=== PATIENT | male | born 1985 | race Caucasian/White ===

== ENCOUNTER 2022-12-11 16:30 | Emergency (ER) | payer SELFPAY ==
[2022-12-11] VITALS (7 sets, daily range): BP systolic 101–124; BP diastolic 79–83; PULSE 73–78; RESP 16; TEMP 36.7; O2SAT 97–100; BMI 29.1
[2022-12-11 17:24] LABS: Basophils % 0.4 %; Eosinophils # 0.1 10^3/uL (0.0-0.8); Eosinophils % 1.5 %; Hematocrit 45.1 % (42.0-52.0); Hemoglobin 14.9 g/dL (11.7-16.6); Lymphocytes # 1.4 10^3/uL (0.8-4.8); Lymphocytes % 26.2 %; Mean Corpuscular Hemoglobin 32.6 pg (28.0-34.0); Mean Corpuscular Volume 98.7 fl (80-94); Mean Platelet Volume 9.2 fL (7.4-10.4); Monocytes # 0.5 10^3/uL (0.2-0.9); Monocytes % 9.5 %; Neutrophils # 3.33 10^3/uL (1.8-7.7); Neutrophils % 62.2 %; Nucleated Red Blood Cells % 0 %; Platelet Count 327 10^3/cmm (130-400); Red Blood Count 4.57 10^6/uL (4.1-5.3); Red Cell Distribution Width 12.2 % (12.1-15.1); White Blood Count 5.4 10^3/uL (4.0-10.0)
[2022-12-11 17:43] LABS: Alanine Aminotransferase 17 U/L (0-41); Albumin Level 4.7 g/dL (3.5-5.2); Alkaline Phosphatase 95 U/L (40-130); Anion Gap 14.7 (5-19); Aspartate Amino Transferase 15 U/L (0-40); Blood Urea Nitrogen 7 mg/dL (6-20); Calcium 8.7 mg/dL (8.5-10.5); Carbon Dioxide 26 mmol/L (22-29); Chloride 104 mmol/L (98-107); Globulin 2.7 g/dL (1.3-4.6); Glomerular Filtration Rate 94.4 mL/min (90-130); Glucose 87 mg/dL (65-115); Lipase 11 U/L (13-60); Osmolality Calculated 289 mOsm/kg (285-295); Potassium 3.7 mmol/L (3.5-5.1); Sodium 141 mmol/L (136-145); Total Bilirubin 0.4 mg/dL (0.15-1.2); Total Protein 7.4 g/dL (6.6-8.7)
--- NOTE | 2022-12-11 19:21 | ED_ITS ---
HPI - Abdominal Pain General: Chief Complaint: Abdominal Pain Stated Complaint: abd pain, n/v, blood in stool Time Seen by Provider: 12/11/22 18:52 History of Present Illness: Patient is a 36-year-old male comes to the ED with abdominal pain. Patient states this is a chronic issue that he has been dealing with for over 4 years now. Patient has history of pancreatitis, bowel resect ion, cholecystectomy and appendectomy. He has had a colonoscopy within the last 4 years as well. He saw multiple GI specialist down in [place] and they were unable to give him any answers. He states that his abdominal pain is chronic but over the last couple weeks its been getting worse. Reports feeling bloated and distended in his abdomen. Pain is rated 10 out of 10 at its all throughout his upper abdomen and then radiates down the middle of his abdomen. He endorses having nausea but denies any recent episodes of emesis over the past couple days. Endorses decreased appetite states that eating anything makes symptoms worse. Denies any diarrhea or constipation. He has been having 2 small formed stool bowel movements a day. Denies any fevers dysuria or hematuria. Denies any alcohol or drug use. Denies any history of liver issues. Associated Symptoms: Reports bloating and nausea; Denies chills, constipation, diarrhea, dysuria, fever(s), hematochezia, hematuria and vomiting Review of Systems Const: Denies: fever(s), chills or fatigue Eyes: Denies: change in vision or eye discomfort ENMT: Denies: throat pain, odynophagia, nasal discharge or nasal congestion Card: Denies: chest pain, palpitations, edema, swelling of feet/ankles, dyspnea on exertion or orthopnea Resp: Denies: dyspnea, productive cough or non-productive cough GI: Reports: abdominal pain, nausea and bloating; Denies: vomiting, diarrhea, constipation or hematochezia : Denies: flank pain, difficulty urinating, dysuria or hematuria Musc: Denies: neck pain, back pain or extremity swelling Skin/Breast: Denies: rash or new lesions Neuro: Denies: headache(s), numbness in extremities or weakness in extremities PFSH ED PFSH: Medical History Pancreatitis Surgical History History of bowel resection History of cholecystectomy Hx of appendectomy Physical Exam Const: COMMON NORMALS: patient oriented x3 and alert GENERAL APPEARANCE: cooperative HENMT: COMMON NORMALS: normocephalic HEAD & SCALP: normocephalic MOUTH: Normal oral and palatal mucosa present THROAT: posterior oropharynx normal and uvula midline Neck/C-Spine: COMMON NORMALS: supple GENERAL: Yes normal visual inspection Resp: COMMON NORMALS: normal respiratory effort, No retractions, No use of accessory muscles and clear to auscultation bilaterally AUSCULTATION: clear to auscultation bilaterally Cardio: COMMON NORMALS: regular rate, regular rhythm, S1 normal heart sound present, S2 normal heart sound present, No gallops present (Cardio), No clicks present (Cardio), No murmurs present (Cardio) and Peripheral pulses 2+ throughout RATE: regular rate RHYTHM: regular rhythm HEART SOUNDS: S1 normal heart sound present and S2 normal heart sound present PERIPHERAL PULSES: Peripheral pulses 2+ throughout GI: COMMON NORMALS: Normal to inspection, nondistended, normoactive bowel sounds present, Soft to palpation and no masses INSPECTION: Yes abdominal distension and Yes central obesity PALPATION: Yes Soft to palpation and Yes Tenderness to palpation present (GI) Details: LUQ and RUQ : COMMON NORMALS: Yes no CVA tenderness BLADDER/KIDNEY EXAM: Yes no CVA tenderness Back/Pelvis: COMMON NORMALS: no CVA tenderness Extremity: COMMON NORMALS: normal to inspection Neuro: COMMON NORMALS: patient oriented x3 SENSORIUM/ORIENTATION: Yes alert GAIT: Yes Normal gait present Skin: GENERAL SKIN EXAM: dry skin Course Vital Signs: Vital signs: Vital Signs Temperature 98.0 F 12/11/22 17:17 Pulse Rate 78 12/11/22 21:31 Respiratory Rate 16 12/11/22 21:31 Blood Pressure 101/79 12/11/22 21:31 Pulse Oximetry 98 12/11/22 21:31 MDM - Abdominal Pain Medical Decision Making Patient is a 36-year-old male comes to the ED with abdominal pain. Patient stat es this is a chronic issue that he has been dealing with for over 4 years now. Patient has history of pancreatitis, bowel resection, cholecystectomy and appendectomy. He has had a colonoscopy within the last 4 years as well. He saw multiple GI specialist down in [place] and they were unable to give him any answers. Vitals are stable. Patient appears nontoxic and in no acute distress. Exam of patient shows some abdominal tenderness throughout right and left upper quadrant and he has some distention of his abdomen. Rest of exam is benign. Labs are all unremarkable. CT of abdomen pelvis showed no acute findings. Patient was diagnosed with chronic abdominal pain I placed an order with case management to refer patient to a primary care physician to get established with locally. Patient was stable for discharge home and sent with a prescription for nausea and pain med. Return to ED precautions given. Patient understood agree with plan. Lab Data I reviewed the patient's lab results. 12/11/22 17:12 12/11/22 17:12 Labs/Radiology: Radiology Impressions Abdomen/Pelvis CT 12/11/22 19:25 IMPRESSION: 1. No acute abnormality in the abdomen or pelvis. 2. Incidental/nonacute findings are listed in the report. Laboratory Results WBC 5.4 10^3/uL (4.0-10.0) 12/11/22 17:12 RBC 4.57 10^6/uL (4.1-5.3) 12/11/22 17:12 Hgb 14.9 g/dL (11.7-16.6) 12/11/22 17:12 Hct 45.1 % (42.0-52.0) 12/11/22 17:12 MCV 98.7 fl (80-94) H 12/11/22 17:12 MCH 32.6 pg (28.0-34.0) 12/11/22 17:12 MCHC 33.0 g/dL (30.0-36.0) 12/11/22 17:12 RDW 12.2 % (12.1-15.1) 12/11/22 17:12 Plt Count 327 10^3/cmm (130-400) 12/11/22 17:12 MPV 9.2 fL (7.4-10.4) 12/11/22 17:12 Neut % (Auto) 62.2 % 12/11/22 17:12 Lymph % (Auto) 26.2 % 12/11/22 17:12 Richardson % (Auto) 9.5 % 12/11/22 17:12 Eos % (Auto) 1.5 % 12/11/22 17:12 Baso % (Auto) 0.4 % 12/11/22 17:12 Neut # (Auto) 3.33 10^3/uL (1.8-7.7) 12/11/22 17:12 Lymph # (Auto) 1.4 10^3/uL (0.8-4.8) 12/11/22 17:12 Richardson # (Auto) 0.5 10^3/uL (0.2-0.9) 12/11/22 17:12 Eos # (Auto) 0.1 10^3/uL (0.0-0.8) 12/11/22 17:12 Baso # (Auto) 0.0 10^3/uL (0.0-0.1) 12/11/22 17:12 Nucleated RBC % (auto) 0 % 12/11/22 17:12 Nucleated RBCs # 0.0 /100WBC 12/11/22 17:12 Sodium 141 mmol/L (136-145) 12/11/22 17:12 Potassium 3.7 mmol/L (3.5-5.1) 12/11/22 17:12 Chloride 104 mmol/L (98-107) 12/11/22 17:12 Carbon Dioxide 26 mmol/L (22-29) 12/11/22 17:12 Anion Gap 14.7 (5-19) 12/11/22 17:12 BUN 7 mg/dL (6-20) 12/11/22 17:12 Creatinine 0.9 mg/dL (0.7-1.2) 12/11/22 17:12 GFR Calculation 94.4 mL/min (90-130) 12/11/22 17:12 Glucose 87 mg/dL (65-115) 12/11/22 17:12 Calculated Osmolality 289 mOsm/kg (285-295) 12/11/22 17:12 Calcium 8.7 mg/dL (8.5-10.5) 12/11/22 17:12 Total Bilirubin 0.4 mg/dL (0.15-1.2) 12/11/22 17:12 AST 15 U/L (0-40) 12/11/22 17:12 ALT 17 U/L (0-41) 12/11/22 17:12 Alkaline Phosphatase 95 U/L (40-130) 12/11/22 17:12 Total Protein 7.4 g/dL (6.6-8.7) 12/11/22 17:12 Albumin 4.7 g/dL (3.5-5.2) 12/11/22 17:12 Globulin 2.7 g/dL (1.3-4.6) 12/11/22 17:12 Lipase 11 U/L (13-60) L 12/11/22 17:12 Urine Color Light yellow (Yellow) 12/11/22 20:38 Urine Appearance Clear (CLEAR) 12/11/22 20:38 Urine pH 6 (5-7) 12/11/22 20:38 Ur Specific [place] 1.010 (1.005-1.030) 12/11/22 20:38 Urine Protein Neg (Negative) 12/11/22 20:38 Urine Glucose (UA) Norm (Normal) 12/11/22 20:38 Urine Ketones Negative (Negative) 12/11/22 20:38 Urine Blood Neg (Negative) 12/11/22 20:38 Urine Nitrate Negative (Negative) 12/11/22 20:38 Urine Bilirubin Neg (Negative) 12/11/22 20:38 Urine Urobilinogen Norm mg/dL (Negative) 12/11/22 20:38 Ur Leukocyte Esterase Negative (Negative) 12/11/22 20:38 Discharge Plan Discharge Patient Disposition: Home Clinical Impression: Chronic abdominal pain Condition: Stable Prescriptions: New ondansetron 4 mg tablet,disintegrating 4 mg PO Q8H PRN (Reason: nausea and vomiting) Qty: 20 0RF Discharge Orders: Discharge ED (Routine); Ordered 12/11/22 Ordered By: Jose Angel Javed Discharge Diet: Advance as tolerated and Clear Liquid Discharge Activity: Increase activity as tolerated Patient Instructions: Abdominal Pain (ED), Opioid Safety Activity Restrictions/Additional Instructions: Follow-up with medical provider as directed. Case management should be contacting you like several days set up appoint with primary care physician for follow-up. Take medications as prescribed. Return to the ER or your medical provider if condition worsens. Please read and understand discharge instructions. Thank you for choosing [facility] for your healthcare needs today. Please realize this is an emergency room and that we are providing you with a medical screening exam and this may not be complete and all inclusive of all the testing and or work up that you may need to determine your ailment or severity of your illness. It is very important that you follow up as instructed or that you return to the Emergency Department should you have concerns or if your condition changes or worsens in any way. Coding Level of Care Code ED Clinical Rn Liaison for Ketan Emery
--- NOTE | 2022-12-11 19:25 | CTR_ITS ---
PROCEDURE INFORMATION: Exam: CT Abdomen And Pelvis With Contrast Exam date and time: 12/11/2022 8:11 PM Age: 36 years old Clinical indication: Abdominal pain; Generalized; Additional info: Upper abdominal pain, n/v TECHNIQUE: Imaging protocol: Computed tomography of the abdomen and pelvis with contrast. Sagittal and coronal reformatted images were created and reviewed. Radiation optimization: All CT scans at this facility use at least one of these dose optimization techniques: automated exposure control; mA and/or kV adjustment per patient size (includes targeted exams where dose is matched to clinical indication); or iterative reconstruction. Contrast material: OMNI 350; Contrast volume: 100 ml; Contrast route: INTRAVENOUS (IV); REPORTING DATA: Count of CT and Cardiac NM exams in prior 12 months: This patient has received 0 known CTs and 0 known cardiac nuclear medicine studies in the 12 months prior to the current study. COMPARISON: No relevant prior studies available. RADIATION DOSE METRICS: Total DLP (mGy-cm): 766.73 FINDINGS: Lungs: Visualized lungs are clear. Pleural spaces: No pleural effusion. Heart: Visualized portions of the heart are unremarkable. Liver: The liver is unremarkable. Gallbladder and bile ducts: Patient has had a previous cholecystectomy. No biliary ductal dilatation. Pancreas: The pancreas is unremarkable. No pancreatic ductal dilatation. Spleen: The spleen is unremarkable. Adrenal glands: The right and left adrenal glands are unremarkable. Kidneys and ureters: The right and left kidneys are unremarkable. The right and left ureters are unremarkable. Stomach and bowel: No obstruction. No mucosal thickening. Appendix: The patient has had a previous appendectomy. Intraperitoneal space: No free intraperitoneal air. No ascites. No loculated fluid collections to suggest an abscess. Vasculature: Unremarkable as visualized. Lymph nodes: No lymphadenopathy. Urinary bladder: Unremarkable as visualized. Reproductive: Unremarkable as visualized. Bones/joints: No acute fracture. Soft tissues: No acute abnormality in the extra-abdominal soft tissues. CT/CT abdomen pelvis w con* [id number] IMPRESSION: 1. No acute abnormality in the abdomen or pelvis. 2. Incidental/nonacute findings are listed in the report.
[2022-12-11] MEDS: ondansetron 2 mg/ML SDV 2 mL 4 MG IVP (19:57)
[2022-12-11] MEDS: morphine 4 mg/mL SDV 1 mL IVP (19:57)
[2022-12-11] MEDS: iohexol 350 mg/mL 500 mL Btl (per mL) IV (20:13)
[2022-12-11] MEDS: HYDROmorphone 1 mg/mL INJ 1 mL IVP (20:38)
[2022-12-11 20:42] LABS: Add Urine Microscopic? NO; Charge for UA Resulting for Rev
[2022-12-11 20:48] LABS: Bilirubin Urine Neg (Negative); Blood Urine Neg (Negative); Glucose Urine UA Norm (Normal); Ketones Urine Negative (Negative); Leukocyte Esterase Urine Negative (Negative); Nitrate Urine Negative (Negative); Protein Urine Neg (Negative); Urine Appearance Clear (CLEAR); Urine Color Light yellow (Yellow); Urobilinogen Urine Norm (Negative); pH Urine 6 (5-7)
[2022-12-11] MEDS: oxyCODONE-APAP 5-325 mg Tablet 2 TAB PO (21:25)
--- NOTE | 2022-12-14 13:51 | DCPLANNER ---
child nutrition manager called patient due to no primary care physician - spoke with patients , gave her the information for [facility] in [place], that has a sliding scale that patient can apply for.
== END 2022-12-11 21:32 | disposition home or self-care (01) ==
PROVIDERS: Physician Assistant; Emergency Provider Physician Assistant
DX: G89.29 Other chronic pain (principal); R10.9 Unspecified abdominal pain
CPT/HCPCS: 36415; 74177; 80053; 81003; 83690; 85025; 96374; 96375; 99285; J1170; J2270; J2405; Q9967